=== PATIENT | male | born 1960 | race Caucasian/White ===

== ENCOUNTER 2019-07-04 18:38 | Inpatient (IN) | payer BC ==
--- NOTE | 2019-07-04 18:53 | PDOC ---
Rapid Medical Evaluation Chief Complaint: Wound Time Seen by Provider: 07/04/19 18:50 Medical Evaluation: Allergies Allergy/AdvReac Type Severity Reaction Status Date / Time No Known Allergies Allergy Verified 07/04/19 18:48 07/04/19 18:50 I have performed a brief in-person evaluation of this patient. The patient presents with a chief complaint of: sent in by Dr Jeffries for admit to Dr. Davis for admittion for IV Abx for cellilitis of left big toe with osteo to left big toe. pt report he went for routine visit to clip toenail and advised to come to ER. Report has no symptoms Pertinent physical exam findings: afebrile I have ordered the following:admission labs The patient will proceed to the ED for further evaluation. Discharge Disposition - Diagnosis Cellulitis of left foot - Discharge Dispostion Condition at time of disposition: Stable - Referrals - Patient Instructions - Post Discharge Activity
[2019-07-04 19:18] LABS: BASO % 0.8 % (0-2.0); EOS % 1.2 % (0-4.5); HEMATOCRIT 43.1 % (35.4-49); HEMOGLOBIN 14.2 GM/dL (11.7-16.9); LYMPH % 25.9 % (8-40); MEAN CELL VOLUME 81.7 fl (80-96); MEAN PLT VOLUME 8.3 fl (7.5-11.1); MONO % 7.6 % (3.8-10.2); NEUT % 64.5 % (42.8-82.8); PLATELET COUNT 226 K/MM3 (134-434); RBC 5.28 M/mm3 (4.00-5.60); RDW 13.1 % (11.9-15.9); WHITE BLOOD COUNT 6.7 K/mm3 (4.0-10.0)
--- NOTE | 2019-07-04 19:39 | PDOC ---
Attending Attestation - Resident Resident Name: Kavon Callahan - ED Attending Attestation I have performed the following: I have examined & evaluated the patient, The case was reviewed & discussed with the resident, I agree w/resident's findings & plan - HPI HPI: 07/04/19 22:51 see resident hpi - Physicial Exam PE: 07/04/19 22:51 agree with resident exam - Medical Decision Making 07/04/19 22:51 59-year-old male sent by podiatry for infection to the left great toe, rule out osteomyelitis Patient has not been to a primary care physician in some time Patient found to have elevated blood pressure heart rate and blood sugar Zosyn and vancomycin administered Patient admitted for further evaluation
[2019-07-04 19:46] LABS: ALBUMIN 4.1 g/dl (3.4-5.0); BILIRUBIN,TOTAL 0.8 mg/dL (0.2-1); BLOOD UREA NITROGEN 13.8 mg/dL (7-18); CREATININE 1.1 mg/dL (0.55-1.3); POTASSIUM 4.5 mmol/L (3.5-5.1); TOT PROT 7.7 g/dl (6.4-8.2)
--- NOTE | 2019-07-04 19:50 | PDOC ---
History of Present Illness - General Chief Complaint: Wound Stated Complaint: WOUND/TOE Time Seen by Provider: 07/04/19 18:50 History Source: Patient Exam Limitations: No Limitations - History of Present Illness Initial Comments: 07/04/19 22:36 59 yo M with no past medical history presents to the emergency department with a left 1st digit toe wound with referral to our emergency department by Dr. Jeffries. Per the patient, he had overgrown toe nails that punctured his PIP joint space on the 1st digit. Denies fever, chills, nausea, and vomiting. Per Dr. Jeffries, he needs evaluation and treatment for potential osteomyelitis. Per the patient, he has not seen a physician in "years". Past History - Past Medical History Allergies/Adverse Reactions: Allergies Allergy/AdvReac Type Severity Reaction Status Date / Time No Known Allergies Allergy Verified 07/04/19 18:48 Home Medications: Ambulatory Orders NK [No Known Home Medication] 07/04/19 - Psycho Social/Smoking Cessation Hx Smoking History: Never smoked Information on smoking cessation initiated: No Hx Alcohol Use: No Drug/Substance Use Hx: No Review of Systems - Review of Systems Able to Perform ROS?: Yes Is the patient limited Setswana proficient: No Constitutional: No: Chills, Diaphoresis, Fever, Weakness HEENTM: No: Eye Pain, Ear Pain, Nose Pain, Throat Pain, Mouth Pain Respiratory: No: Cough, Shortness of Breath, Hemoptysis Cardiac (ROS): No: Chest Pain, Lightheadedness, Palpitations, Syncope, Chest Tightness ABD/GI: No: Constipated, Diarrhea, Nausea, Rectal Bleeding, Vomiting, Tarry Stools : No: Burning, Dysuria, Hematuria Musculoskeletal: Yes: Other (left 1st toe pain). No: Back Pain, Joint Pain, Neck Pain Integumentary: No: Bruising, Erythema, Rash Neurological: No: Numbness, Tremors Psychiatric: No: Change in Appetite Endocrine: No: Unexplained Weight Loss Hematologic/Lymphatic: No: Anemia *Physical Exam - Vital Signs Last Vital Signs Temp Pulse Resp BP Pulse Ox 98.2 F 128 H 17 210/143 H 95 07/04/19 18:48 07/04/19 18:48 07/04/19 18:48 07/04/19 18:48 07/04/19 18:48 - Physical Exam General Appearance: Yes: Nourished, Appropriately Dressed. No: Apparent Distress, Intoxicated HEENT: positive: EOMI, PATRICK, Normal Voice, Symmetrical, Pharynx Normal, Hearing Grossly Normal. negative: Pale Conjunctivae, Scleral Icterus (R), Scleral Icterus (L), Muffled/Hoarse voice, Pharyngeal Erythema, Tonsillar Exudate, Tonsillar Erythema, Nasal Congestion, Rhinorrhea, Sinus Tenderness, Excessive drooling Neck: positive: Trachea midline, Supple. negative: Tender, Lymphadenopathy (R) , Lymphadenopathy (L), Tender lateral, Tender midline Respiratory/Chest: positive: Lungs Clear, Normal Breath Sounds. negative: Chest Tender, Respiratory Distress, Accessory Muscle Use Cardiovascular: positive: Regular Rhythm, Regular Rate, S1, S2. negative: Systolic Murmur Gastrointestinal/Abdominal: positive: Normal Bowel Sounds, Flat, Soft. negative : Tender Lymphatic: negative: Adenopathy Musculoskeletal: positive: Normal Inspection. negative: CVA Tenderness, Vertebral Tenderness Extremity: positive: Normal Capillary Refill, Normal Range of Motion, Tender ( the patient has overgrown fungal nails with cellulitis noted on the PIP of the left first toe without purulence discharge with a puncture wound. no streaking noted.), Erythema (1st digit toe from PIP and distal. left side). negative: Normal Inspection Integumentary: positive: Normal Color, Dry, Warm Neurologic: positive: Fully Oriented, Alert, Normal Mood/Affect ED Treatment Course - LABORATORY CBC & Chemistry Diagram: 07/05/19 07:48 07/05/19 07:48 - ADDITIONAL ORDERS Additional order review: Laboratory Results 07/04/19 19:02 Sodium 133 L Potassium 4.5 Chloride 102 Carbon Dioxide 25 Anion Gap 7 L BUN 13.8 Creatinine 1.1 Est GFR (CKD-EPI)AfAm 85.31 Est GFR (CKD-EPI)NonAf 73.61 Random Glucose 226 H Calcium 9.0 Total Bilirubin 0.8 AST 25 ALT 35 Alkaline Phosphatase 62 Total Protein 7.7 Albumin 4.1 07/04/19 19:02 RBC 5.28 MCV 81.7 MCHC 33.0 RDW 13.1 MPV 8.3 Neutrophils % 64.5 Lymphocytes % 25.9 Monocytes % 7.6 Eosinophils % 1.2 Basophils % 0.8 Medical Decision Making - Medical Decision Making 59 yo M with no past medical history presents to the emergency department with a left 1st digit toe wound with referral to our emergency department by Dr. Jeffries. Initial vitals: Initial Vital Signs Temp Pulse Resp BP Pulse Ox 98.2 F 128 H 17 210/143 H 95 07/04/19 18:48 07/04/19 18:48 07/04/19 18:48 07/04/19 18:48 07/04/19 18:48 WOrk up: patient presented with cellulitis on the 1st toe on left side with concerns for cellulitis vs OM. Will get cultures, cbc, cmp, xrays, and start broad spectrum antibiotics. Laboratory Tests 07/04/19 07/04/19 19:02 19:02 WBC 6.7 RBC 5.28 Hgb 14.2 Hct 43.1 MCV 81.7 MCH 27.0 MCHC 33.0 RDW 13.1 Plt Count 226 MPV 8.3 Absolute Neuts (auto) 4.3 Neutrophils % 64.5 Lymphocytes % 25.9 Monocytes % 7.6 Eosinophils % 1.2 Basophils % 0.8 Nucleated RBC % 0 Sodium 133 L Potassium 4.5 Chloride 102 Carbon Dioxide 25 Anion Gap 7 L BUN 13.8 Creatinine 1.1 Est GFR (CKD-EPI)AfAm 85.31 Est GFR (CKD-EPI)NonAf 73.61 Random Glucose 226 H Calcium 9.0 Total Bilirubin 0.8 AST 25 ALT 35 Alkaline Phosphatase 62 Total Protein 7.[address] Davis was called for admission and accepted for inpatient treatment for possible OM. Will have MRI scheduled. Discharge - Discharge Information Problems reviewed: Yes Clinical Impression/Diagnosis: Cellulitis of left foot Condition: Stable - Follow up/Referral - Patient Discharge Instructions - Post Discharge Activity
[2019-07-04] MEDS ORDERED: PIPERACILLIN/TAZOB 3.375 GM 3.375 GM in DEXTROSE 5%-WATER - 50 ML IVPB ONE (19:52)
[2019-07-04] MEDS ORDERED: VANCOMYCIN 1 GM in D5W (PRE-DOCKED) 1,000 MG/250 ML IVPB ONE (19:52)
[2019-07-04] MEDS ORDERED: VANCOMYCIN 1 GRAM (PRE-DOCKED) 1,000 MG/250 ML BAG IVPB ONE (20:59)
[2019-07-04] MEDS ORDERED: PIPERACILLIN/TAZOB 3.375 GM 3.375 GM/50 ML BAG IVPB ONE (21:00)
[2019-07-04] MEDS ORDERED: ACETAMINOPHEN 325 MG TABLET (FP) PO PRN (23:42)
[2019-07-04] MEDS ORDERED: VANCOMYCIN 1 GM PREMIX - 1 GM/200 ML BAG IVPB SCH (23:45)
[2019-07-05] MEDS ORDERED: PIPERACILLIN/TAZOB 3.375 GM 3.375 GM in DEXTROSE 5%-WATER - 50 ML IVPB SCH (02:00)
[2019-07-05] MEDS ORDERED: PIPERACILLIN/TAZOB 3.375 GM 3.375 GM/50 ML BAG IVPB ONE (02:36)
[2019-07-05] MEDS: PIPERACILLIN/TAZOB 3.375 GM 3.375 GM in DEXTROSE 5%-WATER - 50 ML IVPB SCH ×3 (02:45→17:27)
[2019-07-05 04:06] VITALS: BMI 35.0
--- NOTE | 2019-07-05 07:53 | CONSULT ---
- Consultation REQUESTING PROVIDER: Vascular Surgery - Grupo Banks, CONSULT REQUEST: We have been asked to surgically evaluate this patient for great toe infection PCP: Carmen Davis HPI: Called to eval 59 yo male sent in by Podiatry (Abigail) for further evaluation/treatment of his LEFT great toe infection. Wants to r/o OM. Administered Zosyn and vancomycin in ED. No complaints. Toe Xray: arthritic changes. no signs of fracture or subluxation. no blastic or lytic changes. No bony destruction seen. A pes planus deformity. PMHx: None listed PHYSICAL EXAM: GENERAL: Awake, alert, and fully oriented, in no acute distress. HEAD: Normal with no signs of trauma. LUNGS: cta bilat HEART: rrr ABDOMEN: Soft, nontender, not distended, normoactive bowel sounds UE: 2+ pulses, warm, well-perfused. No cyanosis. Cap refill <2 seconds. No peripheral edema. LLE: 2+ DP/PT pulses, warm, well-perfused. No calf tenderness. No peripheral edema. Cellulitis to hallux. Not tender to palp. Not malodorous. NEUROLOGICAL: Normal speech, gait not observed. PSYCH: Cooperative. Good eye contact. Appropriate mood and affect. Last Vital Signs Temp Pulse Resp BP Pulse Ox 97.2 F L 84 18 134/72 97 07/05/19 06:00 07/05/19 06:00 07/05/19 06:00 07/05/19 06:00 07/05/19 03:15 CBC, BMP 07/04/19 19:02 07/04/19 19:02 Problem List - Problems (1) Cellulitis of left foot Assessment/Plan: NO evidence of OM on xray. Cont IV ABX Cont care per Podiatry No vascular surgery intervention. Re-consult PRN Above plan discussed with my attending and agrees. On behalf of Dr. Banks, thank you for the opportunity to participate in your patient's care. Code(s): L03.116 - CELLULITIS OF LEFT LOWER LIMB Visit type - Case Type Case Type: ED Admission - Emergency Emergency Visit: Yes ED Registration Date: 07/04/19 Care time: The patient presented to the Emergency Department on the above date and was hospitalized for further evaluation of their emergent condition. - New patient This patient is new to me today: Yes Date on this admission: 07/05/19
[2019-07-05 08:50] LABS: BASO % 0.9 % (0-2.0); EOS % 2.4 % (0-4.5); HEMATOCRIT 38.7 % (35.4-49); HEMOGLOBIN 12.9 GM/dL (11.7-16.9); LYMPH % 27.2 % (8-40); MCHC 33.4 g/dl (32.0-35.9); MEAN PLT VOLUME 8.5 fl (7.5-11.1); MONO % 9.1 % (3.8-10.2); NEUT % 60.4 % (42.8-82.8); PLATELET COUNT 209 K/MM3 (134-434); RBC 4.78 M/mm3 (4.00-5.60); RDW 13.1 % (11.9-15.9); WHITE BLOOD COUNT 4.5 K/mm3 (4.0-10.0)
[2019-07-05 09:13] LABS: ALBUMIN 3.5 g/dl (3.4-5.0); BLOOD UREA NITROGEN 12.9 mg/dL (7-18); CREATININE 1.1 mg/dL (0.55-1.3); POTASSIUM 4.7 mmol/L (3.5-5.1); TOT PROT 6.7 g/dl (6.4-8.2)
[2019-07-05] MEDS ORDERED: PIPERACILLIN/TAZOBACTAM 3.375 GM VIAL IVPB ONE ×2 (09:31→17:25)
[2019-07-05] MEDS ORDERED: DEXTROSE 5%-WATER - 50 ML IVPB ONE ×2 (09:31→17:25)
[2019-07-05] MEDS: HEPARIN NA (PORCINE) 5,000 UNITS/ML 1ML VIAL SQ SCH (10:12)
[2019-07-05] MEDS: VANCOMYCIN 1 GRAM (PRE-DOCKED) 1,000 MG/250 ML BAG IVPB SCH ×2 (10:13→21:04)
--- NOTE | 2019-07-05 11:00 | EKG ---
Test Reason : Blood Pressure : / mmHG Vent. Rate : 101 BPM Atrial Rate : 101 BPM P-R Int : 172 ms QRS Dur : 092 ms QT Int : 340 ms P-R-T Axes : 033 -15 060 degrees QTc Int : 440 ms SINUS TACHYCARDIA POSSIBLE LEFT ATRIAL ENLARGEMENT BORDERLINE ECG NO PREVIOUS ECGS AVAILABLE Confirmed by Alireza Johns MD ([id number]) on 07/05/2019 11:00:18 AM Referred By: Confirmed By:Alireza Johns MD
--- NOTE | 2019-07-05 11:26 | CON.ID ---
Consult Consult Specialty:: infectious diseases Referred by:: Reason for Consultation:: infection of left toe - History of Present Illness Chief Complaint: infection of the foot,onchomycosis History of Present Illness: 59-year-old male with h/o of fungal and ingrowing toe nails,neglected to cut the toenails and the left great toe nail ingre and infected the toe and was sent by podiatry for infection to the left great toe, rule out osteomyelitis, patient now on abx and is going for mri says he has never been in hospital before also his blood sugars have been running high - History Source History Provided By: Patient Limitations to Obtaining History: No Limitations - Alcohol/Substance Use Hx Alcohol Use: No - Smoking History Smoking history: Never smoked Home Medications - Allergies Allergies/Adverse Reactions: Allergies Allergy/AdvReac Type Severity Reaction Status Date / Time No Known Allergies Allergy Verified 07/04/19 18:48 - Home Medications Home Medications: Ambulatory Orders NK [No Known Home Medication] 07/04/19 Review of Systems - Review of Systems Constitutional: reports: No Symptoms Eyes: reports: No Symptoms HENT: reports: No Symptoms Neck: reports: No Symptoms Cardiovascular: reports: No Symptoms Respiratory: reports: No Symptoms Gastrointestinal: reports: No Symptoms Genitourinary: reports: No Symptoms Musculoskeletal: reports: No Symptoms Integumentary: reports: Wound, Other Neurological: reports: No Symptoms Endocrine: reports: No Symptoms Hematology/Lymphatic: reports: No Symptoms Psychiatric: reports: No Symptoms Physical Exam Vital Signs: Vital Signs Temperature 97.2 F L 07/05/19 06:00 Pulse Rate 84 07/05/19 06:00 Respiratory Rate 18 07/05/19 06:00 Blood Pressure 134/72 07/05/19 06:00 O2 Sat by Pulse Oximetry (%) 97 07/05/19 03:15 Constitutional: Yes: Well Nourished, No Distress, Calm Eyes: Yes: Conjunctiva Clear Neck: Yes: Supple, Trachea Midline Cardiovascular: Yes: Regular Rate and Rhythm Respiratory: Yes: Regular, CTA Bilaterally Gastrointestinal: Yes: Normal Bowel Sounds, Soft Musculoskeletal: Yes: WNL Extremities: Yes: Other Integumentary: Yes: Other Wound/Incision: Yes: Dressing Dry and Intact, Dressing Removed, Other Neurological: Yes: Alert, Oriented Psychiatric: Yes: Alert, Oriented Labs: CBC, BMP 07/05/19 07:48 07/05/19 07:48 Imaging - Results Chest X-ray: Report Reviewed, Image Reviewed X-ray: Report Reviewed, Image Reviewed
--- NOTE | 2019-07-05 11:27 | HP ---
Admitting History and Physical - Admission History of Present Illness: Pt is a 59 y/o male w/ PMH significant for diabetes but not on any meds and hasn 't seen any primary doctor in yrs. Pt presents to the emergency department with a left 1st digit toe wound with referral to our emergency department by Dr. Jeffries. Per the patient, he had overgrown toe nails that punctured his PIP joint space on the 1st digit. Pt denies any fever/chills and states that maybe at times there is some oozing from wound on lt 1st toe w/ surrounding erythema. - Past Medical History Endocrine: Yes: Diabetes Insipidus - Smoking History Smoking history: Never smoked - Alcohol/Substance Use Hx Alcohol Use: No <Carmen Davis - Last Filed: 07/09/19 18:18> Home Medications <Mikael Lucero - Last Filed: 07/05/19 11:30> <Carmen Davis - Last Filed: 07/09/19 18:18> - Allergies Allergies/Adverse Reactions: Allergies Allergy/AdvReac Type Severity Reaction Status Date / Time No Known Allergies Allergy Verified 07/04/19 18:48 - Home Medications Home Medications: Ambulatory Orders NK [No Known Home Medication] 07/04/19 Family Medical History Family History: Unremarkable <Carmen Davis - Last Filed: 07/09/19 18:18> Review of Systems - Review of Systems Constitutional: reports: No Symptoms Eyes: reports: No Symptoms HENT: reports: No Symptoms Neck: reports: No Symptoms Cardiovascular: reports: No Symptoms Respiratory: reports: No Symptoms Gastrointestinal: reports: No Symptoms Genitourinary: reports: No Symptoms <Carmen Davis - Last Filed: 07/09/19 18:18> Physical Examination Vital Signs: Vital Signs Temperature 97.2 F L 07/05/19 06:00 Pulse Rate 84 07/05/19 06:00 Respiratory Rate 18 07/05/19 06:00 Blood Pressure 134/72 07/05/19 06:00 O2 Sat by Pulse Oximetry (%) 97 07/05/19 03:15 Labs: CBC, BMP 07/05/19 07:48 07/05/19 07:48 <Mikael Lucero - Last Filed: 07/05/19 11:30> Vital Signs: Vital Signs Temperature 97.2 F L 07/05/19 06:00 Pulse Rate 84 07/05/19 06:00 Respiratory Rate 18 07/05/19 06:00 Blood Pressure 134/72 07/05/19 06:00 O2 Sat by Pulse Oximetry (%) 97 07/05/19 03:15 Constitutional: Yes: Obese Eyes: Yes: WNL HENT: Yes: WNL Neck: Yes: WNL, Supple Cardiovascular: Yes: WNL, Regular Rate and Rhythm Respiratory: Yes: WNL, Regular, CTA Bilaterally Gastrointestinal: Yes: WNL, Normal Bowel Sounds, Soft, Abdomen, Obese Extremities: Yes: Other (1st lt toe w/ overgrown toe nail and surrounding erythema/swelling of PIP) Edema: No Neurological: Yes: WNL, Alert, Oriented ...Motor Strength: WNL Labs: CBC, BMP 07/05/19 07:48 07/05/19 07:48 <Carmen Davis - Last Filed: 07/09/19 18:18> Problem List - Problems (1) Cellulitis of left foot Assessment/Plan: Cont IV antibxs ID/podiatry consults Monitor cultures XRAY of foot negative Check MRI foot to r/o osteo Code(s): L03.116 - CELLULITIS OF LEFT LOWER LIMB (2) Diabetes Assessment/Plan: Cont sliding scale w/ coverage Code(s): E11.9 - TYPE 2 DIABETES MELLITUS WITHOUT COMPLICATIONS (3) Obesity Code(s): E66.9 - OBESITY, UNSPECIFIED <Carmen Davis - Last Filed: 07/09/19 18:18> Assessment/Plan this patient who has =never been to any physcian for a long time coming in with infevted rt great toe because of fungal infection patient has very bad toe nails and fungal infection will continue abx await for mri podiatry team on case <Mikael Lucero - Last Filed: 07/05/19 11:30>
--- NOTE | 2019-07-05 19:03 | CONSULT ---
Consult Consult Specialty:: Podiatric Surgery Reason for Consultation:: Cellulitis with grade 3 wound caused by incurvated toe nail - History of Present Illness History of Present Illness: Pt did not cut or have his nails cut for over a year. Got too long and curved on themselves and left big toe was punctured down to bone. Nails were debrided in office yesterday by me and patient was sent to ER for cellulitis, possible diabetes, om. - Alcohol/Substance Use Hx Alcohol Use: No - Smoking History Smoking history: Never smoked Home Medications - Allergies Allergies/Adverse Reactions: Allergies Allergy/AdvReac Type Severity Reaction Status Date / Time No Known Allergies Allergy Verified 07/04/19 18:48 - Home Medications Home Medications: Ambulatory Orders NK [No Known Home Medication] 07/04/19 Physical Exam Vital Signs: Vital Signs Temperature 98.7 F 07/05/19 14:00 Pulse Rate 102 H 07/05/19 14:00 Respiratory Rate 18 07/05/19 14:00 Blood Pressure 141/95 07/05/19 14:00 O2 Sat by Pulse Oximetry (%) 97 07/05/19 03:15 Extremities: Yes: Other (vsgi, decreased ns, +grade 3 wound left hallux, + cellulitis improved from yesterday, r/o om) Labs: CBC, BMP 07/05/19 07:48 07/05/19 07:48 Imaging - Results X-ray: Image Reviewed Assessment/Plan grade 3 wound cellulitis om? Awaiting MRI report. IVABX as per ID. HGBa1c, esr, crp ordered. Santyl to wound on left hallux daily. Will follow.
[2019-07-05] MEDS: COLLAGENASE CLOSTRIDIUM HIST. 30 GRAMS TUBE TP SCH (22:51)
[2019-07-06] MEDS ORDERED: PIPERACILLIN/TAZOBACTAM 3.375 GM VIAL IVPB ONE ×3 (01:03→17:31)
[2019-07-06] MEDS: HEPARIN NA (PORCINE) 5,000 UNITS/ML 1ML VIAL SQ SCH ×3 (01:04→21:24)
[2019-07-06] MEDS ORDERED: DEXTROSE 5%-WATER - 50 ML IVPB ONE ×3 (01:04→17:31)
[2019-07-06] MEDS: PIPERACILLIN/TAZOB 3.375 GM 3.375 GM in DEXTROSE 5%-WATER - 50 ML IVPB SCH ×3 (01:05→18:12)
[2019-07-06] MEDS: COLLAGENASE CLOSTRIDIUM HIST. 30 GRAMS TUBE TP SCH (11:08)
--- NOTE | 2019-07-06 12:59 | PN ---
Progress Note, Physician History of Present Illness: stable no new issues - Current Medication List Current Medications: Active Medications Acetaminophen (Tylenol -) 650 mg PO Q6H PRN PRN Reason: PAIN LEVEL 1-5 Collagenase (Santyl -) 1 applic TP DAILY [facility]; Protocol Last Admin: 07/06/19 11:08 Dose: 1 applic Heparin Sodium (Porcine) (Heparin -) 5,000 unit SQ BID [facility] Last Admin: 07/06/19 11:08 Dose: 5,000 unit Piperacillin Sod/Tazobactam (Sod 3.375 gm/ Dextrose) 50 mls @ 100 mls/hr IVPB Q8H-IV [facility]; Protocol Last Admin: 07/06/19 11:08 Dose: 100 mls/hr - Objective Vital Signs: Vital Signs Temperature 97.8 F 07/06/19 06:00 Pulse Rate 84 07/06/19 06:00 Respiratory Rate 18 07/06/19 06:00 Blood Pressure 149/88 07/06/19 06:00 O2 Sat by Pulse Oximetry (%) 98 07/06/19 09:00 Constitutional: Yes: No Distress, Calm Cardiovascular: Yes: S1, S2 Respiratory: Yes: Regular, CTA Bilaterally Gastrointestinal: Yes: Normal Bowel Sounds, Soft Musculoskeletal: Yes: WNL Extremities: Yes: Other Wound/Incision: Yes: Dressing Dry and Intact Neurological: Yes: Alert, Oriented Psychiatric: Yes: Alert, Oriented Labs: CBC, BMP 07/05/19 07:48 07/05/19 07:48 Assessment/Plan this patient who has =never been to any physcian for a long time coming in with infevted rt great toe because of fungal infection patient has very bad toe nails and fungal infection will continue abx mri results noted will await for podiatry plan rest as per the team
--- NOTE | 2019-07-06 15:30 | PN ---
Progress Note, Physician History of Present Illness: Pt did not cut or have his nails cut for over a year. Got too long and curved on themselves and left big toe was punctured down to bone. Nails were debrided in office yesterday by me and patient was sent to ER for cellulitis, possible diabetes, om. - Current Medication List Current Medications: Active Medications Acetaminophen (Tylenol -) 650 mg PO Q6H PRN PRN Reason: PAIN LEVEL 1-5 Collagenase (Santyl -) 1 applic TP DAILY [facility]; Protocol Last Admin: 07/06/19 11:08 Dose: 1 applic Heparin Sodium (Porcine) (Heparin -) 5,000 unit SQ BID [facility] Last Admin: 07/06/19 11:08 Dose: 5,000 unit Piperacillin Sod/Tazobactam (Sod 3.375 gm/ Dextrose) 50 mls @ 100 mls/hr IVPB Q8H-IV [facility]; Protocol Last Admin: 07/06/19 11:08 Dose: 100 mls/hr - Objective Vital Signs: Vital Signs Temperature 97.8 F 07/06/19 06:00 Pulse Rate 84 07/06/19 06:00 Respiratory Rate 18 07/06/19 06:00 Blood Pressure 149/88 07/06/19 06:00 O2 Sat by Pulse Oximetry (%) 98 07/06/19 09:00 Extremities: Yes: Other (vsgi, ns decreased, +improved cellulitis, -drainage, - mal odor, [id number]=10.7, -om) Labs: CBC, BMP 07/05/19 07:48 07/05/19 07:48 Assessment/Plan grade 3 wound cellulitis newly diagnosed diabetes IVABX as per ID. Sanders to wound on left hallux daily. Will follow. Consult Endocrinology.
--- NOTE | 2019-07-06 22:38 | PN ---
Progress Note, Physician History of Present Illness: No new complaints - Current Medication List Current Medications: Active Medications Acetaminophen (Tylenol -) 650 mg PO Q6H PRN PRN Reason: PAIN LEVEL 1-5 Collagenase (Santyl -) 1 applic TP DAILY [facility]; Protocol Last Admin: 07/06/19 11:08 Dose: 1 applic Heparin Sodium (Porcine) (Heparin -) 5,000 unit SQ BID [facility] Last Admin: 07/06/19 21:24 Dose: 5,000 unit Piperacillin Sod/Tazobactam (Sod 3.375 gm/ Dextrose) 50 mls @ 100 mls/hr IVPB Q8H-IV [facility]; Protocol Last Admin: 07/06/19 18:12 Dose: 100 mls/hr - Objective Vital Signs: Vital Signs Temperature 97.8 F 07/06/19 18:00 Pulse Rate 94 H 07/06/19 18:00 Respiratory Rate 18 07/06/19 18:00 Blood Pressure 144/94 07/06/19 18:00 O2 Sat by Pulse Oximetry (%) 98 07/06/19 09:00 Constitutional: Yes: Well Nourished, Obese Neck: Yes: WNL, Supple Cardiovascular: Yes: WNL, Regular Rate and Rhythm Respiratory: Yes: WNL, Regular, CTA Bilaterally Gastrointestinal: Yes: WNL, Normal Bowel Sounds, Soft, Abdomen, Obese Extremities: Yes: Other (1st lt toe erythema around PIP) Labs: CBC, BMP 07/05/19 07:48 07/05/19 07:48 Problem List - Problems (1) Cellulitis of left foot Assessment/Plan: Cont IV antibxs ID/podiatry consults noted Monitor cultures XRAY of foot negative MRI was negative for osteo Code(s): L03.116 - CELLULITIS OF LEFT LOWER LIMB (2) Diabetes Assessment/Plan: Cont sliding scale w/ coverage Code(s): E11.9 - TYPE 2 DIABETES MELLITUS WITHOUT COMPLICATIONS (3) Obesity Code(s): E66.9 - OBESITY, UNSPECIFIED
[2019-07-07] MEDS ORDERED: PIPERACILLIN/TAZOBACTAM 3.375 GM VIAL IVPB ONE ×3 (01:16→18:28)
[2019-07-07] MEDS ORDERED: DEXTROSE 5%-WATER - 50 ML IVPB ONE ×3 (01:17→18:28)
[2019-07-07] MEDS: PIPERACILLIN/TAZOB 3.375 GM 3.375 GM in DEXTROSE 5%-WATER - 50 ML IVPB SCH ×3 (01:21→19:03)
--- NOTE | 2019-07-07 10:47 | PN ---
Progress Note (short form) - Note Progress Note: fuv left foot. +greatly improved cellulitis, -drainage, -mal odor dm newly dianosed grade 2 wound resolving resolving cellulitis May be dc from podiatry standpoint and follow up in office once diabetes is adressed. abx as per id. will follow.
--- NOTE | 2019-07-07 11:01 | PN ---
Progress Note, Physician History of Present Illness: stable no new issues - Current Medication List Current Medications: Active Medications Acetaminophen (Tylenol -) 650 mg PO Q6H PRN PRN Reason: PAIN LEVEL 1-5 Collagenase (Santyl -) 1 applic TP DAILY [facility]; Protocol Last Admin: 07/06/19 11:08 Dose: 1 applic Heparin Sodium (Porcine) (Heparin -) 5,000 unit SQ BID [facility] Last Admin: 07/06/19 21:24 Dose: 5,000 unit Piperacillin Sod/Tazobactam (Sod 3.375 gm/ Dextrose) 50 mls @ 100 mls/hr IVPB Q8H-IV [facility]; Protocol Last Admin: 07/07/19 01:21 Dose: 100 mls/hr - Objective Vital Signs: Vital Signs Temperature 97.8 F 07/07/19 06:00 Pulse Rate 84 07/07/19 06:00 Respiratory Rate 18 07/07/19 06:00 Blood Pressure 142/78 07/07/19 06:00 O2 Sat by Pulse Oximetry (%) 95 07/06/19 21:00 Constitutional: Yes: No Distress, Calm Cardiovascular: Yes: S1, S2 Respiratory: Yes: Regular, CTA Bilaterally Gastrointestinal: Yes: Normal Bowel Sounds, Soft Musculoskeletal: Yes: WNL Extremities: Yes: Other Neurological: Yes: Alert, Oriented Psychiatric: Yes: Alert, Oriented Labs: CBC, BMP 07/05/19 07:48 07/05/19 07:48 Assessment/Plan plan continue abx will d/w the team rest as per the team
[2019-07-07] MEDS: HEPARIN NA (PORCINE) 5,000 UNITS/ML 1ML VIAL SQ SCH ×2 (11:12→21:41)
[2019-07-07] MEDS: COLLAGENASE CLOSTRIDIUM HIST. 30 GRAMS TUBE TP SCH (11:12)
[2019-07-07] MEDS: INSULIN SLIDING SCALE (NOVOLOG) 1 VIAL SQ SCH ×3 (13:04→21:41)
[2019-07-07] MEDS: INSULIN (LEVEMIR) 100 UNITS/ML UNITS SQ SCH (13:05)
--- NOTE | 2019-07-07 15:45 | CONSULT ---
Consult Consult Specialty:: Endocrine Referred by:: dr.Stepanian Godwin Reason for Consultation:: Diabetes mellitus type 2 - History of Present Illness Chief Complaint: toe infection newly diagnosed diabetic History of Present Illness: 59 yo M with no past medical history presented with a left 1st digit toe wound upon advice of Dr. Jeffries. Per the patient, he had overgrown toe nails that punctured his PIP joint space on the 1st digit. Denies fever, chills, nausea, and vomiting. he was found to have new onset dmt2,blood sugars have ranged above 200mg/dl,has frequent urination and thirst in past denies blurred vision, admits he did lose weight unsure how much.he does not see a doctor regularly. - Alcohol/Substance Use Hx Alcohol Use: No - Smoking History Smoking history: Never smoked Home Medications - Allergies Allergies/Adverse Reactions: Allergies Allergy/AdvReac Type Severity Reaction Status Date / Time No Known Allergies Allergy Verified 07/04/19 18:48 - Home Medications Home Medications: Ambulatory Orders NK [No Known Home Medication] 07/04/19 Review of Systems - Review of Systems Constitutional: reports: Lethargy, Loss of Appetite Eyes: reports: Blurred Vision HENT: reports: No Symptoms Neck: reports: No Symptoms Cardiovascular: reports: No Symptoms Respiratory: reports: No Symptoms Gastrointestinal: reports: No Symptoms Genitourinary: reports: Frequency Breasts: reports: No Symptoms Reported Musculoskeletal: reports: No Symptoms Integumentary: reports: No Symptoms Neurological: reports: Numbness, Weakness Endocrine: reports: Unexplained Weight Loss Physical Exam Vital Signs: Vital Signs Temperature 97.8 F 07/07/19 06:00 Pulse Rate 84 07/07/19 06:00 Respiratory Rate 18 07/07/19 06:00 Blood Pressure 142/78 07/07/19 06:00 O2 Sat by Pulse Oximetry (%) 95 07/06/19 21:00 Constitutional: Yes: Calm Eyes: Yes: EOM Intact HENT: Yes: Normocephalic Neck: Yes: Trachea Midline Cardiovascular: Yes: Regular Rate and Rhythm Respiratory: Yes: CTA Bilaterally Gastrointestinal: Yes: Normal Bowel Sounds ...Rectal Exam: Yes: Deferred Renal/: Yes: WNL Breast(s): Yes: WNL Musculoskeletal: Yes: Joint Stiffness, Muscle Pain Extremities: Yes: WNL Edema: No Integumentary: Yes: Pressure Ulcer, Onychomycosis, Venous Stasis Changes Wound/Incision: Yes: Dressing Dry and Intact Neurological: Yes: Alert, Oriented Labs: CBC, BMP 07/05/19 07:48 07/05/19 07:48 Problem List - Problems (1) Diabetes mellitus with nonketotic hyperosmolarity Problems reviewed: Yes Code(s): E11.00 - TYPE 2 DIAB W HYPROSM W/O NONKET HYPRGLY-HYPROS COMA ([facility]) (2) Cellulitis of left foot Code(s): L03.116 - CELLULITIS OF LEFT LOWER LIMB Assessment/Plan Current Active Problems dm t2,neuropathy new diagnosis Laboratory Results - last 24 hr 07/07/19 12:26 POC Glucometer 393 Cellulitis of left foot (Acute) Laboratory Tests 07/05/19 07/06/19 07/07/19 07:48 07:30 12:26 Sodium 136 Potassium 4.7 Chloride 101 Carbon Dioxide 28 Anion Gap 6 L BUN 12.9 Creatinine 1.1 Est GFR (CKD-EPI)AfAm 85.31 Est GFR (CKD-EPI)NonAf 73.61 POC Glucometer 393 Random Glucose 227 H Hemoglobin A1c % 10.7 H plan: levemir 20 units am janumet 50 /1000mg bid bgm achs novolog scale diet low carb protein diet wound care follow up
[2019-07-07] MEDS: metFORMIN HCL 500 MG TABLET (FP) PO SCH (19:03)
[2019-07-07] MEDS ORDERED: INSULIN (NOVOLOG) ASPART 100 UNITS/ML 10ML VIAL ONE (21:33)
--- NOTE | 2019-07-07 21:51 | PN ---
Progress Note, Physician History of Present Illness: No new complaints - Current Medication List Current Medications: Active Medications Acetaminophen (Tylenol -) 650 mg PO Q6H PRN PRN Reason: PAIN LEVEL 1-5 Collagenase (Santyl -) 1 applic TP DAILY [facility]; Protocol Last Admin: 07/07/19 11:12 Dose: 1 applic Heparin Sodium (Porcine) (Heparin -) 5,000 unit SQ BID [facility] Last Admin: 07/07/19 21:41 Dose: 5,000 unit Piperacillin Sod/Tazobactam (Sod 3.375 gm/ Dextrose) 50 mls @ 100 mls/hr IVPB Q8H-IV [facility]; Protocol Last Admin: 07/07/19 19:03 Dose: 100 mls/hr Insulin Aspart (Novolog Vial Sliding Scale -) 1 vial SQ ACHS [facility]; Protocol Last Admin: 07/07/19 21:41 Dose: 6 units Insulin Detemir (Levemir Vial) 20 units SQ AM [facility] Last Admin: 07/07/19 13:05 Dose: 20 unit Metformin HCl (Glucophage -) 500 mg PO BID@0700,1630 [facility] Last Admin: 07/07/19 19:03 Dose: 500 mg Sitagliptin Phosphate (Januvia -) 100 mg PO DAILY@0700 [facility] - Objective Vital Signs: Vital Signs Temperature 97.8 F 07/07/19 18:00 Pulse Rate 95 H 07/07/19 18:00 Respiratory Rate 18 07/07/19 18:00 Blood Pressure 165/96 07/07/19 18:00 O2 Sat by Pulse Oximetry (%) 95 07/07/19 09:00 Constitutional: Yes: Well Nourished, Obese Neck: Yes: WNL, Supple Cardiovascular: Yes: WNL, Regular Rate and Rhythm Respiratory: Yes: WNL, Regular, CTA Bilaterally Gastrointestinal: Yes: WNL, Normal Bowel Sounds, Soft, Abdomen, Obese Extremities: Yes: Other (1st big toe w/ erythematous wound) Labs: CBC, BMP 07/05/19 07:48 07/05/19 07:48 Problem List - Problems (1) Cellulitis of left foot Assessment/Plan: Cont IV antibxs ID/podiatry consults noted Monitor cultures XRAY of foot negative MRI was negative for osteo Code(s): L03.116 - CELLULITIS OF LEFT LOWER LIMB (2) Diabetes Assessment/Plan: Cont sliding scale w/ coverage Endo consult noted Pt is being taught how to give himself insulin Code(s): E11.9 - TYPE 2 DIABETES MELLITUS WITHOUT COMPLICATIONS (3) Obesity Code(s): E66.9 - OBESITY, UNSPECIFIED
[2019-07-08] MEDS ORDERED: PIPERACILLIN/TAZOBACTAM 3.375 GM VIAL IVPB ONE ×2 (01:10→09:17)
[2019-07-08] MEDS ORDERED: DEXTROSE 5%-WATER - 50 ML IVPB ONE ×2 (01:10→09:17)
[2019-07-08] MEDS: PIPERACILLIN/TAZOB 3.375 GM 3.375 GM in DEXTROSE 5%-WATER - 50 ML IVPB SCH ×2 (01:39→09:32)
[2019-07-08] MEDS: sitaGLIPtin PHOSPHATE 50 MG TABLET PO SCH (06:54)
[2019-07-08] MEDS: metFORMIN HCL 500 MG TABLET (FP) PO SCH ×2 (06:54→17:30)
[2019-07-08] MEDS: INSULIN (LEVEMIR) 100 UNITS/ML UNITS SQ SCH (06:54)
[2019-07-08] MEDS: INSULIN SLIDING SCALE (NOVOLOG) 1 VIAL SQ SCH ×4 (06:55→22:00)
[2019-07-08 09:17] LABS: BASO % 0.8 % (0-2.0); EOS % 2.7 % (0-4.5); HEMOGLOBIN 13.8 GM/dL (11.7-16.9); LYMPH % 26.7 % (8-40); MCH 27.1 pg (25.7-33.7); MCHC 33.6 g/dl (32.0-35.9); MEAN CELL VOLUME 80.7 fl (80-96); MEAN PLT VOLUME 9.3 fl (7.5-11.1); MONO % 8.3 % (3.8-10.2); NEUT % 61.5 % (42.8-82.8); PLATELET COUNT 183 K/MM3 (134-434); RBC 5.08 M/mm3 (4.00-5.60); RDW 13.1 % (11.9-15.9)
[2019-07-08] MEDS: COLLAGENASE CLOSTRIDIUM HIST. 30 GRAMS TUBE TP SCH (09:33)
[2019-07-08] MEDS: HEPARIN NA (PORCINE) 5,000 UNITS/ML 1ML VIAL SQ SCH ×2 (09:33→22:00)
[2019-07-08 09:50] LABS: ALBUMIN 3.5 g/dl (3.4-5.0); BILIRUBIN,TOTAL 0.6 mg/dL (0.2-1); CALCIUM 9.2 mg/dL (8.5-10.1); CREATININE 1.1 mg/dL (0.55-1.3); POTASSIUM 4.3 mmol/L (3.5-5.1); TOT PROT 6.7 g/dl (6.4-8.2)
[2019-07-08 09:51] LABS: WHITE BLOOD COUNT 7.3 K/mm3 (4.0-10.0)
--- NOTE | 2019-07-08 13:27 | PN ---
Progress Note (short form) - Note Progress Note: fuv left foot. +resolved cellulitis, -drainage, -mal odor dm newly diagnosed grade 2 wound resolving resolving cellulitis Pt seen by endocrinology. abx as per id. will follow till dc. .
--- NOTE | 2019-07-08 14:06 | PN ---
Progress Note, Physician History of Present Illness: Pt states Lt toe feels better, redness resolving. - Current Medication List Current Medications: Active Medications Acetaminophen (Tylenol -) 650 mg PO Q6H PRN PRN Reason: PAIN LEVEL 1-5 Collagenase (Santyl -) 1 applic TP DAILY [facility]; Protocol Last Admin: 07/08/19 09:33 Dose: 1 applic Heparin Sodium (Porcine) (Heparin -) 5,000 unit SQ BID [facility] Last Admin: 07/08/19 09:33 Dose: 5,000 unit Piperacillin Sod/Tazobactam (Sod 3.375 gm/ Dextrose) 50 mls @ 100 mls/hr IVPB Q8H-IV [facility]; Protocol Last Admin: 07/08/19 09:32 Dose: 100 mls/hr Insulin Aspart (Novolog Vial Sliding Scale -) 1 vial SQ ACHS [facility]; Protocol Last Admin: 07/08/19 12:21 Dose: 6 units Insulin Detemir (Levemir Vial) 20 units SQ AM [facility] Last Admin: 07/08/19 06:54 Dose: 20 unit Metformin HCl (Glucophage -) 500 mg PO BID@0700,1630 [facility] Last Admin: 07/08/19 06:54 Dose: 500 mg Sitagliptin Phosphate (Januvia -) 100 mg PO DAILY@0700 [facility] Last Admin: 07/08/19 06:54 Dose: 100 mg - Objective Vital Signs: Vital Signs Temperature 97.9 F 07/08/19 09:41 Pulse Rate 94 H 07/08/19 09:41 Respiratory Rate 18 07/08/19 09:41 Blood Pressure 143/74 07/08/19 09:41 O2 Sat by Pulse Oximetry (%) 96 07/07/19 21:00 Constitutional: Yes: No Distress, Calm Cardiovascular: Yes: Regular Rate and Rhythm Respiratory: Yes: Regular Gastrointestinal: Yes: Normal Bowel Sounds, Soft Genitourinary: Yes: WNL Musculoskeletal: Yes: WNL Extremities: Yes: Erythema (Lt great toe less erythema/edema, nontender + onychomycosis) Edema: No Integumentary: Yes: WNL Neurological: Yes: Alert, Oriented Labs: CBC, BMP 07/08/19 07:56 07/08/19 07:56 Microbiology 07/04/19 19:02 Blood - Peripheral Venous Blood Culture - Preliminary NO GROWTH OBTAINED AFTER 72 HOURS, INCUBATION TO CONTINUE FOR 2 DAYS. 01/28/20 19:02 Blood - Peripheral Venous Blood Culture - Preliminary NO GROWTH OBTAINED AFTER 72 HOURS, INCUBATION TO CONTINUE FOR 2 DAYS. - ....Imaging MRI: Report Reviewed Problem List - Problems (1) Cellulitis of left foot Code(s): L03.116 - CELLULITIS OF LEFT LOWER LIMB Assessment/Plan Lt 1st toe cellulitis DM -- erythema/edema resolving -- may switch from Zosyn to Augmentin for 1 more wk -- f/u with Podiatry, continue wound care
[2019-07-08] MEDS: AMOX TR/POT CLAV 875MG/125MG TABLETS (FP) PO SCH (17:34)
--- NOTE | 2019-07-08 21:39 | PN ---
Progress Note, Physician History of Present Illness: No new complaints - Current Medication List Current Medications: Active Medications Acetaminophen (Tylenol -) 650 mg PO Q6H PRN PRN Reason: PAIN LEVEL 1-5 Amoxicillin/Clavulanate Potassium (Augmentin - 875mg Tablet) 1 tab PO BID@0800, 1730 [facility] Last Admin: 07/08/19 17:34 Dose: 1 tab Collagenase (Santyl -) 1 applic TP DAILY [facility]; Protocol Last Admin: 07/08/19 09:33 Dose: 1 applic Heparin Sodium (Porcine) (Heparin -) 5,000 unit SQ BID [facility] Last Admin: 07/08/19 09:33 Dose: 5,000 unit Insulin Aspart (Novolog Vial Sliding Scale -) 1 vial SQ ACHS [facility]; Protocol Last Admin: 07/08/19 17:37 Dose: Not Given Insulin Detemir (Levemir Vial) 20 units SQ AM [facility] Last Admin: 07/08/19 06:54 Dose: 20 unit Metformin HCl (Glucophage -) 500 mg PO BID@0700,1630 [facility] Last Admin: 07/08/19 17:30 Dose: 500 mg Sitagliptin Phosphate (Januvia -) 100 mg PO DAILY@0700 [facility] Last Admin: 07/08/19 06:54 Dose: 100 mg - Objective Vital Signs: Vital Signs Temperature 97.8 F 07/08/19 14:00 Pulse Rate 95 H 07/08/19 14:00 Respiratory Rate 18 07/08/19 14:00 Blood Pressure 136/76 07/08/19 14:00 O2 Sat by Pulse Oximetry (%) 96 07/08/19 09:00 Neck: Yes: WNL, Supple Cardiovascular: Yes: WNL Respiratory: Yes: WNL, Regular, CTA Bilaterally Gastrointestinal: Yes: WNL, Normal Bowel Sounds, Soft, Abdomen, Obese Extremities: Yes: Other (1st lt ote w/ wound) Labs: CBC, BMP 07/08/19 07:56 07/08/19 07:56 Problem List - Problems (1) Cellulitis of left foot Code(s): L03.116 - CELLULITIS OF LEFT LOWER LIMB (2) Diabetes Code(s): E11.9 - TYPE 2 DIABETES MELLITUS WITHOUT COMPLICATIONS (3) Obesity Code(s): E66.9 - OBESITY, UNSPECIFIED
[2019-07-09] MEDS: INSULIN SLIDING SCALE (NOVOLOG) 1 VIAL SQ SCH ×4 (07:03→22:59)
[2019-07-09] MEDS: INSULIN (LEVEMIR) 100 UNITS/ML UNITS SQ SCH (07:05)
[2019-07-09] MEDS: metFORMIN HCL 500 MG TABLET (FP) PO SCH ×2 (07:05→17:19)
[2019-07-09] MEDS: sitaGLIPtin PHOSPHATE 50 MG TABLET PO SCH (07:06)
[2019-07-09] MEDS ORDERED: INSULIN (NOVOLOG) ASPART 100 UNITS/ML 10ML VIAL ONE (07:20)
[2019-07-09] MEDS ORDERED: PT OWN MED DRAWER 7, Y5N ONE (07:21)
[2019-07-09] MEDS: AMOX TR/POT CLAV 875MG/125MG TABLETS (FP) PO SCH ×2 (09:23→17:19)
[2019-07-09] MEDS: HEPARIN NA (PORCINE) 5,000 UNITS/ML 1ML VIAL SQ SCH ×2 (09:24→22:59)
[2019-07-09] MEDS: COLLAGENASE CLOSTRIDIUM HIST. 30 GRAMS TUBE TP SCH (09:25)
--- NOTE | 2019-07-09 10:30 | PN ---
Progress Note (short form) - Note Progress Note: fuv left foot. +resolved cellulitis, -drainage, -mal odor dm grade 2 wound resolving resolved cellulitis Diabetes being managed. Can be dc from podiatry standpoint. abx as per id. will follow till dc.
[2019-07-09] MEDS ORDERED: INSULIN (LEVEMIR) 100 UNITS/ML UNITS SQ SCH (15:42)
--- NOTE | 2019-07-09 16:07 | PN ---
Progress Note, Physician History of Present Illness: Pt is alert, afebrile, without distress. Lt toe erythema improved, denies pain. - Current Medication List Current Medications: Active Medications Acetaminophen (Tylenol -) 650 mg PO Q6H PRN PRN Reason: PAIN LEVEL 1-5 Amoxicillin/Clavulanate Potassium (Augmentin - 875mg Tablet) 1 tab PO BID@0800, 1730 [facility] Last Admin: 07/09/19 09:23 Dose: 1 tab Collagenase (Santyl -) 1 applic TP DAILY [facility]; Protocol Last Admin: 07/09/19 09:25 Dose: 1 applic Heparin Sodium (Porcine) (Heparin -) 5,000 unit SQ BID [facility] Last Admin: 07/09/19 09:24 Dose: 5,000 unit Insulin Aspart (Novolog Vial Sliding Scale -) 1 vial SQ ACHS [facility]; Protocol Insulin Detemir (Levemir Vial) 35 units SQ AM [facility] Metformin HCl (Glucophage -) 500 mg PO BID@0700,1630 [facility] Last Admin: 07/09/19 07:05 Dose: 500 mg Sitagliptin Phosphate (Januvia -) 100 mg PO DAILY@0700 [facility] Last Admin: 07/09/19 07:06 Dose: 100 mg - Objective Vital Signs: Vital Signs Temperature 99.0 F 07/09/19 13:00 Pulse Rate 93 H 07/09/19 13:00 Respiratory Rate 18 07/09/19 13:00 Blood Pressure 145/83 07/09/19 13:00 O2 Sat by Pulse Oximetry (%) 96 07/08/19 21:00 Constitutional: Yes: No Distress, Calm Cardiovascular: Yes: Regular Rate and Rhythm Respiratory: Yes: Regular Gastrointestinal: Yes: Normal Bowel Sounds, Soft Extremities: Yes: Erythema (Lt toe less erythema/edema/tenderness) Labs: CBC, BMP 07/08/19 07:56 07/08/19 07:56 Problem List - Problems (1) Cellulitis of left foot Code(s): L03.116 - CELLULITIS OF LEFT LOWER LIMB Assessment/Plan Lt 1st toe cellulitis DM -- improved -- Augmentin x 6 more days -- f/u with Podiatry, continue wound care
--- NOTE | 2019-07-09 18:30 | PN ---
Progress Note, Physician History of Present Illness: No new complaints - Current Medication List Current Medications: Active Medications Acetaminophen (Tylenol -) 650 mg PO Q6H PRN PRN Reason: PAIN LEVEL 1-5 Amoxicillin/Clavulanate Potassium (Augmentin - 875mg Tablet) 1 tab PO BID@0800, 1730 [facility] Last Admin: 07/09/19 17:19 Dose: 1 tab Collagenase (Santyl -) 1 applic TP DAILY [facility]; Protocol Last Admin: 07/09/19 09:25 Dose: 1 applic Heparin Sodium (Porcine) (Heparin -) 5,000 unit SQ BID [facility] Last Admin: 07/09/19 09:24 Dose: 5,000 unit Insulin Aspart (Novolog Vial Sliding Scale -) 1 vial SQ ACHS [facility]; Protocol Last Admin: 07/09/19 17:23 Dose: Not Given Insulin Detemir (Levemir Vial) 35 units SQ AM [facility] Metformin HCl (Glucophage -) 500 mg PO BID@0700,1630 [facility] Last Admin: 07/09/19 17:19 Dose: 500 mg Sitagliptin Phosphate (Januvia -) 100 mg PO DAILY@0700 [facility] Last Admin: 07/09/19 07:06 Dose: 100 mg - Objective Vital Signs: Vital Signs Temperature 99.0 F 07/09/19 13:00 Pulse Rate 93 H 07/09/19 13:00 Respiratory Rate 18 07/09/19 13:00 Blood Pressure 145/83 07/09/19 13:00 O2 Sat by Pulse Oximetry (%) 96 07/08/19 21:00 Constitutional: Yes: Well Nourished, Other Neck: Yes: WNL, Supple Cardiovascular: Yes: WNL, Regular Rate and Rhythm Respiratory: Yes: WNL, Regular, CTA Bilaterally Gastrointestinal: Yes: WNL, Normal Bowel Sounds, Soft, Abdomen, Obese Extremities: Yes: Other (lt 1st toe w/ wound) Labs: CBC, BMP 07/08/19 07:56 07/08/19 07:56 Problem List - Problems (1) Cellulitis of left foot Assessment/Plan: Pt now on p[o augmentin DC planning for am XRAY of foot negative MRI was negative for osteo BC remain negative Code(s): L03.116 - CELLULITIS OF LEFT LOWER LIMB (2) Diabetes Assessment/Plan: Cont sliding scale w/ coverage Endo consult noted Pt is being taught how to give himself insulin Code(s): E11.9 - TYPE 2 DIABETES MELLITUS WITHOUT COMPLICATIONS (3) Obesity Code(s): E66.9 - OBESITY, UNSPECIFIED
--- NOTE | 2019-07-09 22:16 | PN ---
Progress Note, Physician Chief Complaint: no complaint sugars improved - Current Medication List Current Medications: Active Medications Acetaminophen (Tylenol -) 650 mg PO Q6H PRN PRN Reason: PAIN LEVEL 1-5 Amoxicillin/Clavulanate Potassium (Augmentin - 875mg Tablet) 1 tab PO BID@0800, 1730 [facility] Last Admin: 07/09/19 17:19 Dose: 1 tab Collagenase (Santyl -) 1 applic TP DAILY [facility]; Protocol Last Admin: 07/09/19 09:25 Dose: 1 applic Heparin Sodium (Porcine) (Heparin -) 5,000 unit SQ BID [facility] Last Admin: 07/09/19 09:24 Dose: 5,000 unit Insulin Aspart (Novolog Vial Sliding Scale -) 1 vial SQ ACHS [facility]; Protocol Last Admin: 07/09/19 17:23 Dose: Not Given Insulin Detemir (Levemir Vial) 35 units SQ AM [facility] Metformin HCl (Glucophage -) 500 mg PO BID@0700,1630 [facility] Last Admin: 07/09/19 17:19 Dose: 500 mg Sitagliptin Phosphate (Januvia -) 100 mg PO DAILY@0700 [facility] Last Admin: 07/09/19 07:06 Dose: 100 mg - Objective Vital Signs: Vital Signs Temperature 97.7 F 07/09/19 18:00 Pulse Rate 88 07/09/19 18:00 Respiratory Rate 18 07/09/19 18:00 Blood Pressure 146/78 07/09/19 18:00 O2 Sat by Pulse Oximetry (%) 96 07/09/19 09:00 Constitutional: Yes: Calm Eyes: Yes: EOM Intact Neck: Yes: Trachea Midline Cardiovascular: Yes: Regular Rate and Rhythm Respiratory: Yes: CTA Bilaterally Gastrointestinal: Yes: Normal Bowel Sounds ...Rectal Exam: Yes: Deferred Genitourinary: Yes: WNL Breast(s): Yes: WNL Musculoskeletal: Yes: WNL Extremities: Yes: Delayed Capillary Refill Edema: No Integumentary: Yes: Onychomycosis Wound/Incision: Yes: Dressing Dry and Intact Neurological: Yes: Alert, Oriented Labs: CBC, BMP 07/08/19 07:56 07/08/19 07:56 Problem List - Problems (1) Diabetes mellitus with nonketotic hyperosmolarity Code(s): E11.00 - TYPE 2 DIAB W HYPROSM W/O NONKET HYPRGLY-HYPROS COMA ([facility]) (2) Cellulitis of left foot Code(s): L03.116 - CELLULITIS OF LEFT LOWER LIMB Assessment/Plan Current Active Problems Cellulitis of left foot (Acute) Diabetes (Acute) Diabetes mellitus with nonketotic hyperosmolarity (Acute) Obesity (Acute) Laboratory Results - last 24 hr 07/09/19 07/09/19 07/09/19 06:13 11:30 17:21 POC Glucometer 146 180 107 07/09/19 21:06 POC Glucometer 110 plan: levemir q am 35 unit s metformin 500mg bid januvia 100mg day follow up op
[2019-07-10] MEDS: sitaGLIPtin PHOSPHATE 50 MG TABLET PO SCH (07:01)
[2019-07-10] MEDS: metFORMIN HCL 500 MG TABLET (FP) PO SCH (07:01)
[2019-07-10] MEDS: INSULIN SLIDING SCALE (NOVOLOG) 1 VIAL SQ SCH ×2 (07:05→11:47)
[2019-07-10] MEDS ORDERED: INSULIN (NOVOLOG) ASPART 100 UNITS/ML 10ML VIAL ONE (07:28)
[2019-07-10] MEDS ORDERED: PT OWN MED DRAWER 7, Y5N ONE (09:23)
[2019-07-10] MEDS: HEPARIN NA (PORCINE) 5,000 UNITS/ML 1ML VIAL SQ SCH (09:24)
[2019-07-10] MEDS: AMOX TR/POT CLAV 875MG/125MG TABLETS (FP) PO SCH (09:24)
[2019-07-10 10:29] VITALS: BP 137/84; PULSE 94; TEMP 98.9
[2019-07-10] MEDS: COLLAGENASE CLOSTRIDIUM HIST. 30 GRAMS TUBE TP SCH (11:48)
== END 2019-07-10 14:20 | disposition home or self-care (01) | DRG 602 ==
LOC: JER 18:38 → JERBED 20:45 → J5S 07-05 03:13
PROVIDERS: ADMIT Internal Medicine; ATTEND Internal Medicine
DX: L03.116 Cellulitis of left lower limb (principal); E11.00 Type 2 diabetes mellitus with hyperosmolarity without nonketotic hyperglycemic-hyperosmolar coma (NKHHC); E66.9 Obesity, unspecified; Z68.35 Body mass index [BMI] 35.0-35.9, adult; E11.40 Type 2 diabetes mellitus with diabetic neuropathy, unspecified; Z79.84 Long term (current) use of oral hypoglycemic drugs
CPT/HCPCS: 36415; 71045-TC-FY; 73630-TC-LT; 73660-TC-LT-FY; 73718-TC-LT; 80053; 82962; 83036; 85025; 85651; 86140; 87040; 93005; 93010; 99285-25; J1644